=== PATIENT | male | born 1930 | race Caucasian/White ===

== ENCOUNTER 2016-09-01 11:05 | Inpatient (IN) | payer MEDICARE, BC ==
[2016-08-31 09:43] LABS: BASOPHILS 0.4 %; BASOPHILS ABSOLUTE 0.02 10/3/uL (0.0-0.16); EOSINOPHILS 2.1 %; HEMATOCRIT 40.9 % (40.0-51.0); HEMOGLOBIN 13.5 g/dL (13.6-17.8); LYMPHOCYTES 32.7 %; LYMPHOCYTES ABSOLUTE 1.58 10/3/uL (0.67-4.30); MEAN CORPUSCULAR VOLUME 90.9 fL (80-100); MEAN PLATELET VOLUME 11.6 fL (9.2-13.0); MONOCYTES 7.7 %; MONOCYTES ABSOLUTE 0.37 10/3/uL (0.21-1.20); NEUTROPHILS 57.1 %; NEUTROPHILS ABSOLUTE 2.76 10/3/uL (2.02-8.40); PLATELET COUNT 138 10/3/uL (150-400); RBC DISTRIBUTION WIDTH 13.8 % (12.0-16.0); WHITE BLOOD CELLS 4.8 10/3/uL (4.5-10.5)
[2016-08-31 09:44] LABS: MANUAL DIFF NO %
[2016-08-31 09:59] LABS: BUN (BLOOD UREA NITROGEN) 19 MG/DL (6-23); CALCIUM, SERUM 9.2 MG/DL (8.5-10.4); CHLORIDE, SERUM 101 MMOL/L (96-112); CO2 (CARBON DIOXIDE) 34 MMOL/L (24-34); GFR AFRICAN AMERICAN 49 ML/MIN (>=60); GFR NON AFRICAN AMERICAN 42 ML/MIN (>=60); POTASSIUM, SERUM 4.5 MMOL/L (3.5-5.3); SODIUM, SERUM 141 MMOL/L (135-148)
[2016-08-31 10:00] LABS: GLUCOSE, SERUM 229 MG/DL (60-99)
--- NOTE | ~2016-09-01 | CN ---
Consultation Report [facility] [address] [facility] [place]. [address] NAME: ARIADNE CAREY : 31 STATUS : ADM IN PAT#: [id number] AGE: 86 ADM/REG DATE : 09/01/16 MR#: [id number] REPORT SERV DATE: 09/02/16 DICTATED BY: DANICA BORREGO DATE: 09/01/16 REPORT STATUS : Draft TRANSCRIBED BY: MODL DATE: 09/01/16 CONSULTATION DATE OF CONSULTATION: 09/01/2016 REASON FOR CONSULTATION: Consulted for hypertension. IDENTIFYING DATA: PRIMARY CARE PHYSICIAN: Previously was Prakash Mota DO. The patient relates that they still go to [facility] and cannot remember the name of the new physician. ORTHOPEDIST: Miguel Schultz II, M.D. HISTORY OF PRESENT ILLNESS: This is an 86-year-old male with a history of diabetes type 2, hypertension, chronic lumbar pain, hypothyroidism, BPH, GERD who presents to Dr. Miguel Schultz II with admission for low back pain with spasms, with radiation to the right lower extremity and down at the lateral thigh and posterior calf and foot. He is presently status post L4-L5 and L5-S1 facetectomies with transforaminal lumbar fusion on 09/01/2016, the patient presented out of surgery with hypertension where his blood pressures were 227/79, 199/65, 221/88. The rapid response team did see him initially postoperatively. The hospitalist group has been consulted to manage his blood pressure. Next, the patient's history was obtained through interview with the patient coupled with review of [employer] and [employer]. PAST MEDICAL HISTORY: 1. Cataracts. 2. Diabetes, type 2. 3. GERD. 4. Hypertension. 5. Seasonal allergic conjunctivitis. 6. Arthritis. 7. Celiac disease with gluten problems for which he is on a gluten-free diet. 8. BPH. 9. Hypothyroidism. 10.Chronic lumbar pain. 11.TIA. 12.Diverticulosis. HOME MEDICATIONS: 1. Aspirin 81 mg p.o. daily. 2. Monopril 40 mg p.o. twice a day. 3. Hydrochlorothiazide 25 mg p.o. every morning. 4. Novolin 70/30, 20 units subcu with breakfast. Consultation Report [place] [id number] [facility] [place]. [address] NAME: ARIADNE CAREY : 31 STATUS : ADM IN PAT#: [id number] AGE: 86 ADM/REG DATE : 09/01/16 MR#: [id number] REPORT SERV DATE: 09/02/16 DICTATED BY: DANICA BORREGO DATE: 09/01/16 REPORT STATUS : Draft TRANSCRIBED BY: MESFIN DATE: 09/01/16 5. Novolin 70/30, 7 units subcu with supper. 6. Levothyroxine 137 mcg p.o. every morning. 7. Metformin 850 mg p.o. with breakfast and supper. 8. Lopressor 100 mg p.o. twice a day. ALLERGIES: NO KNOWN ALLERGIES. SOCIAL HISTORY: The patient is , 43 years. Has a total of 6 children between him and his . He is retired. He was previously in motor vehicle sales, lives in a single-level home. No history of tobacco, no illicit drug use, and no alcohol use. FAMILY HISTORY: Positive for diabetes and stroke. His father is in his 80s from a stroke. His mother is in her 90s from natural causes. The patient's paternal grandfather was positive for diabetes and hypertension. SURGICAL HISTORY: 1. Tonsillectomy in the 1970s. 2. L4-S1 lumbar laminectomy for nerve root decompression in 04/30/2015. 3. Bilateral IOLI. 4. Colonoscopy. REVIEW OF SYSTEMS: Are negative other than what is in HPI. The patient is alert and oriented. No shortness of breath. No confusion. No agitation. No fever. No chest pain. Does complain of nausea, but presently no vomiting. No abdominal pain at present time. PHYSICAL EXAMINATION: VITAL SIGNS: From today: Blood pressure prior to treatment, last blood pressure was 221/88; heart rate 62; O2 sat 98% on 2 L nasal cannula; respiratory rate 16. GENERAL: This is a very pleasant 86-year-old male, status post lumbar surgery. Resting in bed. Does complain of nausea. NEURO: His head is atraumatic, normocephalic. He is alert and oriented x3. His cranial nerves are intact. His mood is appropriate. NECK: Supple. Trachea is midline. No JVD noted. No obvious thyromegaly or lymphadenopathy. EENT: His sclerae are nonicteric. Pupils are equal and reactive to light. His nares are patent. Mucous membranes are moist. His tongue is midline without deviation. Soft palate rises equally on phonation. CHEST: No pain with palpation. LUNGS: Clear to auscultation bilaterally. He has normal respiratory effort. He has no increased work of breathing with conversation. CARDIOVASCULAR: S1, S2. No obvious murmurs, rubs, or gallops. He does have a regular rhythm, but he is on telemetry. Presently, he has a heart rate at 58 with a sinus bradycardia with a first degree AV block. ABDOMEN: Soft, nontender. He has hypoactive bowel sounds. No palpable organomegaly. Consultation Report [place] [id number] [facility] [place]. [address] NAME: ARIADNE CAREY : 31 STATUS : ADM IN [facility]#: [id number] AGE: 86 ADM/REG DATE : 09/01/16 MR#: [id number] REPORT SERV DATE: 09/02/16 DICTATED BY: DANICA BORREGO DATE: 09/01/16 REPORT STATUS : Draft TRANSCRIBED BY: MESFIN DATE: 09/01/16 EXTREMITIES: Normal distal pulses. No calf tenderness. No edema. He has bilateral SCDs and TEDs in place for DVT prophylaxis. SKIN: Warm and dry. No unusual rashes, skin lesions, normal color and turgor. PSYCH: The patient is pleasant, cooperative, appropriate mood and affect. SURGICAL WOUND SITE: Dressing is clean, dry, and intact. He does have a DEEPA drain compressed with sanguinous drainage noted at the bed side. Also a Sanchez catheter is in place, draining light yellow urine at the bedside. LABORATORY DATA: Sodium 141, potassium 4.5, chloride 101, BUN 19, creatinine 1.50, GFR 49. Glucose 229, calcium 9.2. White blood cell 4.8, hemoglobin 13.5, hematocrit 40.9, platelets 138. Present blood sugar is 219. The patient had an EKG today on 09/01/2016, which showed a sinus bradycardia with a first-degree heart block. Possible inferior anterior infarct age undetermined, rate of 58. ASSESSMENT AND PLAN: 1. Diabetes type 2. The patient states that he checks his blood sugars on the monitor twice a day at home. Average blood sugars noted were 150 to 250. Presently, his blood sugar is 219. He is normally on metformin and insulin of 70/30 at home. We will hold the metformin and his 70/30 insulin. Presently, he is having a lot of nausea. He can resume an 1800-ADA diet in the morning with gluten-free, which he request. community nutrition educator to see him regarding monitoring his blood sugars and his diet. We will place him on a sliding scale level 2 for tonight with a hypoglycemic protocol. Blood sugars before meal and at bedtime. We will check a blood sugar at 2 a.m. x1. 2. Hypertension. Aware. This gentleman came directly from surgery with systolic blood pressures in the 200s/70s to 90s. He is on numerous medications at home including hydrochlorothiazide, Monopril, aspirin as well as metoprolol. His creatinine noted though is presently 1.50. We will hold his hydrochlorothiazide. His aspirin is on hold postsurgery. We will hold his Monopril. His IV fluids will be continued at 75 an hour due to nausea. We will add hydralazine 10 to 20 mg IV q.4 hours p.r.n. systolic blood pressure greater than 165. We will continue his metoprolol 100 mg as ordered daily. He is on telemetry and we will monitor continuous O2 saturations since he is on a [employer] with Dilaudid for pain control. 3. Hypothyroidism. Aware. We will check a TSH and a free T4, and morning labs, and continue his levothyroxine. 4. GERD. Aware. The patient will be on Protonix p.o. daily for reflux. 5. A.m. labs: CMP, magnesium, CBC, phosphorus, TSH, free T4, hemoglobin A1c. The hospitalist group would like to thank you for this consultation. Please let us know if we can be of any further assistance. MICHAEL Danica Borrego, Consultation Report [address] [place]. [address] NAME: ARIADNE CAREY : 31 STATUS : ADM IN [facility]#: [id number] AGE: 86 ADM/REG DATE : 09/01/16 MR#: [id number] REPORT SERV DATE: 09/02/16 DICTATED BY: DANICA BORREGO DATE: 09/01/16 REPORT STATUS : Draft TRANSCRIBED BY: MESFIN DATE: 09/01/16 [employer] / [id number] CC: Miguel Schultz II, M.D.
--- NOTE | ~2016-09-01 | DS ---
Discharge Summary [facility] [address] [place]. [address] NAME: ARIADNE CAREY : 32 STATUS : DIS IN PAT#: [id number] AGE: 86 ADM/REG DATE : 09/01/16 MR#: [id number] REPORT SERV DATE: 09/16/16 DICTATED BY: THONY SCHULTZ II DATE: 09/15/16 REPORT STATUS : Draft TRANSCRIBED BY: MESFIN DATE: 09/15/16 Data Collection from hospitalization DISCHARGE DIAGNOSES: 1. Right lower extremity radiculopathy-recurrent. 2. L4-5, L5-S1 severe facet arthrosis with L4-5 spondylolisthesis. 3. Diabetes. 4. Hypertension. 5. Cataracts. 6. Gastroesophageal reflux disease. CONSULTATION: Danica Scruggs NP PROCEDURES PERFORMED: Revision laminectomy and facetectomy for decompression of the L4-L5 and S1 nerve roots; posterolateral arthrodesis, L4-5, L5-S1; posterior segmental instrumentation, L4-5, L5-S1; use of local autograft and allograft substitute and bone morphogenetic protein; use of microscope and stereotactic spinal imaging, 09/01/2016. PATHOLOGY: Spine, lumbar bone, and tissue-fibrocartilage consistent with intervertebral disk, benign bone fragments with degenerative changes, atrophic skeletal muscle. DISCHARGE MEDICATIONS: Aspirin 81 mg daily, belladonna and supplement one suppository per rectum twice a day as needed, Colace 100 mg twice a day, Cardura 1 mg daily, Monopril 40 mg twice a day, hydrochlorothiazide 25 mg every morning, Sledge 7.5/325 one to two tablets every six hours as needed, Novolin 70/30 20 units subcutaneously with breakfast and 7 units subcutaneously with supper, levothyroxine 137 mcg every morning, Lopressor 100 mg twice a day, MiraLAX powder one packet daily as needed. CONDITION AT DISCHARGE: Stable. DISPOSITION: The patient was discharged home to be followed by home health care on a gluten- free diet with activities as instructed. He would follow up with me, 10/07/2016. HOSPITAL COURSE: This is an 86-year-old man, who had been complaining of lumbar spine- related symptoms. The symptoms are located in the lower back with minimal aches and occasional spasms with radiation into the right lower extremity, radiating down the lateral thigh and into the posterior calf into his foot. The patient has L4-5, L5-S1 severe facet arthrosis with L4-5 spondylolisthesis. Treatment options were discussed and it was elected to proceed with surgical intervention. He was admitted to the hospital at this time for further evaluation and treatment. Upon admission, he was taken to the operating room, where he underwent the above-mentioned procedure. He tolerated this well and there were no complications. Postoperatively, he was seen by Danica Scruggs regarding hypertension. Postoperatively, he was hypertensive. Rapid response team did see him initially postoperatively. The patient states he checks his blood sugars on the monitor twice a day. Metformin was going to be held as well as his 70/30 insulin. He presently had a lot of nausea. He was going to resume an 1800-calorie diabetic diet, gluten free. He would undergo diabetes education. He was placed on sliding scale Discharge Summary [address] [address] NAME: ARIADNE CAREY : 31 STATUS : DIS IN PAT#: [id number] AGE: 86 ADM/REG DATE : 09/01/16 MR#: [id number] REPORT SERV DATE: 09/16/16 DICTATED BY: THONY SCHULTZ II DATE: 09/15/16 REPORT STATUS : Draft TRANSCRIBED BY: MESFIN DATE: 09/15/16 level 2 insulin. IV fluids were continued. Hydrochlorothiazide was held. Aspirin was on hold as well as Monopril. Metoprolol was continued. IV hydralazine would be given as needed. Protonix was continued for reflux. We were going to check TSH and free T4. Levothyroxine was continued. On postop day #1, creatinine level was 1.50. Level 2 sliding scale insulin continued as well as Lopressor. His blood pressure was controlled. He underwent diabetes education. On the , he denied any lower extremity radiculopathy. He had developed some bladder pain and pain with urination overnight. The drain was going to remain in place. Diabetes education continued. Hydrochlorothiazide was added. Levemir was added. He continued to progress. He was wanting to go home. Discharge planning was performed. On 09/05/2016, he said he was feeling better. His abdominal pain had resolved. Discharge instructions were given. Due to his improved and stable condition, he was discharged home with the above-stated instructions. Information collected by: Neela Barajas I submit the above information as my discharge summary. SIDNEY/MESFIN Thony Schultz II, M.D. / [id number] CC: Neha Esteban II [place]
--- NOTE | ~2016-09-01 | OP ---
Record Of Operation [facility] [address] [place]. [address] NAME: ARIADNE CAREY : 32 STATUS : DIS IN PAT#: [id number] AGE: 86 ADM/REG DATE : 09/01/16 MR#: [id number] REPORT SERV DATE: 09/05/16 DICTATED BY: THONY SCHULTZ II DATE: 09/05/16 REPORT STATUS : Draft TRANSCRIBED BY: MODL DATE: 09/05/16 DATE OF PROCEDURE: 09/01/2016 PREOPERATIVE DIAGNOSES: 1. Right lower extremity radiculopathy, recurrent. 2. L4-5, L5-S1 severe facet arthrosis with L4-5 spondylolisthesis. POSTOPERATIVE DIAGNOSES: 1. Right lower extremity radiculopathy, recurrent. 2. L4-5, L5-S1 severe facet arthrosis with L4-5 spondylolisthesis. PROCEDURE: 1. Revision laminectomy and facetectomy for decompression of the L4-L5 and S1 nerve roots. 2. Posterolateral arthrodesis, L4-5, L5-S1. 3. Posterior segmental instrumentation, L4-5, L5-S1. 4. Use of local autograft and allograft substitute, and bone morphogenic protein. 5. Use of the microscope and stereotactic spinal imaging. SURGEON: Thony Schultz M.D. FLUIDS: 1300 mL LR. ESTIMATED BLOOD LOSS: 75 mL. DRAINS: One drain. COMPLICATIONS: None. ANTIBIOTIC: Preoperatively. PREOPERATIVE HISTORY: This is a very friendly, 86-year-old gentleman, who is extremely active, who reports radiating pain from his right buttock into the posterior thigh and anterior and lateral aspects of his leg. He did well following a minimally invasive surgery at approximately two years ago. He reports that the pain is significant and does not allow him to be as active as he wants. He still participates in athletic programs. DESCRIPTION OF PROCEDURE: After informed consent was obtained, the patient was brought to the operating room at his request and general anesthesia achieved. He was placed in the prone position, and the back was prepped and draped in a sterile fashion. The stereotactic spinal pin was placed into the left iliac crest followed by completion of the intraoperative CT scan. The minimally invasive incision was now performed. A minimally invasive retractor was placed at L4-5 and L5-S1. The microscope was brought into place. Under microscopic visualization, the revision facetectomy and laminectomy was initiated at L4-5. Severe facet arthropathy was now identified and the remainder of the facetectomy carried out. The pars was now removed at L4. This allowed decompression of the L4 nerve root, which exhibited moderate compression upon it from the facet and residual hypertrophic ligamentum flavum. Record Of Operation [facility] [address] [address] NAME: ARIADNE CAREY : 31 STATUS : DIS IN PAT#: [id number] AGE: 86 ADM/REG DATE : 09/01/16 MR#: [id number] REPORT SERV DATE: 09/05/16 DICTATED BY: THONY SCHULTZ II DATE: 09/05/16 REPORT STATUS : Draft TRANSCRIBED BY: MESFIN DATE: 09/05/16 Next, the L5 nerve root was then also well decompressed by removal of additional facet. We essentially had to skeletonize the L5 pedicle on the right to adequately decompress and confirm adequate decompression of the L5 nerve root. Next, we worked down to the L5-S1 level whereupon again the pars was now removed. Severe compression of the L5 nerve root was noted in the foraminal zone. The aggressive facetectomy was required to adequately decompress the nerve roots in the foraminal zone. Next, the S1 nerve root was also decompressed. It was not as severely compressed at L5 but still exhibited significant compression, both nerve roots were now well decompressed and confirmed under the microscope. Next, the pedicle screws were applied. Percutaneous screws were placed on the left. On the right, screws were placed with the exception of the L5 screws, again we essentially had to skeletonize the pedicle in an effort to decompress the L5 nerve root. Repeat CT scan confirmed acceptable placement of the implants and the rods were then well assembled and final tightening performed. Next, the decortication was performed of the transverse process on the right at L4-L5 and the sacral ala. Local autograft was also placed along the decorticated surfaces along with allograft substitute and bone morphogenic protein. At this point, the deep drain was placed and standard closure performed, and the patient was extubated and transferred to PACU in stable condition. MAGO/MESFIN Thony Schultz II, M.D. / [id number] CC: Thony Schultz II, M.D.
[~2016-09-01 11:05] MED LIST: ACID; ADVIL PO; ASAB PO; FLOMAX4 PO; GINKGO BILO2 PO; GLUCPH8 PO; HYDROCHLOROT25 MG PO; IMOD PO; INSNOV7030 SC; LEVOTHYROXIN137 MCG PO; LOP100 PO; MELATONIN5 M1 PO; MONO20 PO; MONOPRIL40 MG PO; MULTIPLE VIT PO; PAIN RELIEF; PRILOSEC40 MG PO; SYN112 PO; VIAGRA100 MG PO; VITAMIN B-121000 MC1 SL; VITAMIN D1000 UNI1
[2016-09-02 09:20] LABS: HEMOGLOBIN 12.1 g/dL (13.6-17.8); MEAN CORPUS HGB CONC 33.2 g/dL (32.0-36.0); MEAN CORPUSCULAR HEMOGLOB 30.4 pg (26.0-34.0); MEAN CORPUSCULAR VOLUME 91.7 fL (80-100); PLATELET COUNT 154 10/3/uL (150-400); RBC DISTRIBUTION WIDTH 14.1 % (12.0-16.0); RED CELL COUNT 3.98 10/6/uL (4.7-6.1)
[2016-09-02 09:24] LABS: HEMATOCRIT 36.5 % (40.0-51.0); MANUAL DIFF YES %; WHITE BLOOD CELLS 8.7 10/3/uL (4.5-10.5)
[2016-09-02 09:43] LABS: LYMPHOCYTES 12 %; LYMPHOCYTES ABSOLUTE (CALC) 1.04 10/3/uL (0.67-4.30); MONOCYTES 7 %; MONOCYTES ABSOLUTE (CALC) 0.61 10/3/uL (0.21-1.20); NEUTROPHILS ABSOLUTE (CALC) 7.05 10/3/uL (2.02-8.40); PLATELET ESTIMATE ADQ (ADEQUATE); RBC MORPHOLOGY NORM (NORMAL); SEGMENTED NEUTROPHIL (0) 81 %; TOTAL NUCLEATED CELLS 100
[2016-09-02 09:44] LABS: A/G RATIO 0.9 (0.7-1.9); ALKALINE PHOSPHATASE 58 U/L (45-117); CALCIUM, SERUM 8.3 MG/DL (8.5-10.4); CHLORIDE, SERUM 103 MMOL/L (96-112); CREATININE 1.65 MG/DL (0.70-1.30); FREE T4 1.47 NG/DL (0.76-1.46); GFR AFRICAN AMERICAN 43 ML/MIN (>=60); GFR NON AFRICAN AMERICAN 37 ML/MIN (>=60); GLOBULIN 3.4 G/DL (2.5-4.1); GLUCOSE, SERUM 223 MG/DL (60-99); PHOSPHORUS, SERUM 3.9 MG/DL (2.5-4.5); SGPT(ALT) 30 U/L (5-65); SODIUM, SERUM 138 MMOL/L (135-148); TOTAL BILIRUBIN 0.4 MG/DL (0-1.2); TOTAL PROTEIN 6.4 G/DL (6.0-8.5)
[2016-09-02 09:46] LABS: BUN (BLOOD UREA NITROGEN) 26 MG/DL (6-23); CO2 (CARBON DIOXIDE) 24 MMOL/L (24-34); POTASSIUM, SERUM 5.1 MMOL/L (3.5-5.3)
[2016-09-02 09:47] LABS: SGOT(AST) 50 U/L (5-40)
[2016-09-03 04:51] LABS: BASOPHILS 0.1 %; BASOPHILS ABSOLUTE 0.01 10/3/uL (0.0-0.16); EOSINOPHILS 0.7 %; EOSINOPHILS ABSOLUTE 0.06 10/3/uL (0.0-0.53); HEMATOCRIT 34.4 % (40.0-51.0); HEMOGLOBIN 11.7 g/dL (13.6-17.8); IMMATURE GRANULOCYTES 0.1 %; IMMATURE GRANULOCYTES ABSOLUTE 0.01 10/3/uL (0.0-0.11); LYMPHOCYTES 13.9 %; LYMPHOCYTES ABSOLUTE 1.17 10/3/uL (0.67-4.30); MEAN CORPUSCULAR HEMOGLOB 30.7 pg (26.0-34.0); MEAN CORPUSCULAR VOLUME 90.3 fL (80-100); MEAN PLATELET VOLUME 11.6 fL (9.2-13.0); MONOCYTES 7.4 %; MONOCYTES ABSOLUTE 0.62 10/3/uL (0.21-1.20); NEUTROPHILS 77.8 %; NEUTROPHILS ABSOLUTE 6.52 10/3/uL (2.02-8.40); PLATELET COUNT 145 10/3/uL (150-400); RBC DISTRIBUTION WIDTH 13.9 % (12.0-16.0); RED CELL COUNT 3.81 10/6/uL (4.7-6.1); WHITE BLOOD CELLS 8.4 10/3/uL (4.5-10.5)
[2016-09-03 05:03] LABS: MANUAL DIFF NO %
[2016-09-03 05:04] LABS: BUN (BLOOD UREA NITROGEN) 26 MG/DL (6-23); CALCIUM, SERUM 8.4 MG/DL (8.5-10.4); CHLORIDE, SERUM 104 MMOL/L (96-112); CO2 (CARBON DIOXIDE) 25 MMOL/L (24-34); CREATININE 1.55 MG/DL (0.70-1.30); GFR AFRICAN AMERICAN 47 ML/MIN (>=60); GFR NON AFRICAN AMERICAN 40 ML/MIN (>=60); GLUCOSE, SERUM 254 MG/DL (60-99); POTASSIUM, SERUM 4.7 MMOL/L (3.5-5.3); SODIUM, SERUM 139 MMOL/L (135-148)
[2016-09-03 05:10] LABS: PHOSPHORUS, SERUM 1.9 MG/DL (2.5-4.5)
[2016-09-03 07:51] LABS: ASCORBIC ACID (UR NOT ORDER) NEG (NEG); BILIRUBIN, URINE NEGATIVE (NEG); KETONE, URINE TRACE MG/DL (NEG); LEUKOCYTE ESTERASE(NOT OR TRACE (NEG); WBC (NOT ORDERED) (RFLEX) 4 (0-5)
[2016-09-04 06:55] LABS: BASOPHILS 0.1 %; BASOPHILS ABSOLUTE 0.01 10/3/uL (0.0-0.16); EOSINOPHILS 1.5 %; EOSINOPHILS ABSOLUTE 0.13 10/3/uL (0.0-0.53); HEMATOCRIT 31.4 % (40.0-51.0); HEMOGLOBIN 10.5 g/dL (13.6-17.8); IMMATURE GRANULOCYTES 0.1 %; IMMATURE GRANULOCYTES ABSOLUTE 0.01 10/3/uL (0.0-0.11); LYMPHOCYTES 19.7 %; LYMPHOCYTES ABSOLUTE 1.66 10/3/uL (0.67-4.30); MEAN CORPUS HGB CONC 33.4 g/dL (32.0-36.0); MEAN CORPUSCULAR HEMOGLOB 30.1 pg (26.0-34.0); MEAN PLATELET VOLUME 11.4 fL (9.2-13.0); MONOCYTES 9.7 %; MONOCYTES ABSOLUTE 0.82 10/3/uL (0.21-1.20); NEUTROPHILS 68.9 %; NEUTROPHILS ABSOLUTE 5.81 10/3/uL (2.02-8.40); PLATELET COUNT 140 10/3/uL (150-400); RBC DISTRIBUTION WIDTH 14.1 % (12.0-16.0); RED CELL COUNT 3.49 10/6/uL (4.7-6.1); WHITE BLOOD CELLS 8.4 10/3/uL (4.5-10.5)
[2016-09-04 07:04] LABS: MANUAL DIFF NO %
[2016-09-04 07:05] LABS: BUN (BLOOD UREA NITROGEN) 26 MG/DL (6-23); CALCIUM, SERUM 8.6 MG/DL (8.5-10.4); CHLORIDE, SERUM 106 MMOL/L (96-112); CREATININE 1.23 MG/DL (0.70-1.30); GFR AFRICAN AMERICAN 62 ML/MIN (>=60); GFR NON AFRICAN AMERICAN 53 ML/MIN (>=60); POTASSIUM, SERUM 4.7 MMOL/L (3.5-5.3); SODIUM, SERUM 142 MMOL/L (135-148)
[2016-09-04 07:06] LABS: CO2 (CARBON DIOXIDE) 31 MMOL/L (24-34); GLUCOSE, SERUM 113 MG/DL (60-99); PHOSPHORUS, SERUM 1.1 MG/DL (2.5-4.5)
[2016-09-05] MEDS ORDERED: CARDURA1 MG PO (11:03)
[2016-09-05] MEDS ORDERED: [UNRECOGNIZED DRUG - OTHER] PR (11:08)
[2016-09-05] MEDS ORDERED: BELLADONNA PR (11:08)
[2016-09-05] MEDS ORDERED: NORCO1 TA2 PO (11:12)
[2016-09-05] MEDS ORDERED: DSS PO (12:17)
[2016-09-05] MEDS ORDERED: MIRALAX POWDER1 PKT PO (12:25)
[2016-10-04] MEDS ORDERED: ULTRAM50 PO (17:25)
[2016-10-04] MEDS ORDERED: MOBIC7.5 PO (17:26)
[2016-10-04] MEDS ORDERED: [UNRECOGNIZED DRUG - OTHER] (17:29)
[2016-10-04] MEDS ORDERED: VITAMINS (17:29)
[2016-11-22] MEDS ORDERED: GLUCPH8 PO (13:23)
[2016-12-10] MEDS ORDERED: GLUCPH8 PO (22:26)
[2016-12-10] MEDS ORDERED: ASAB PO (22:29)
[2016-12-10] MEDS ORDERED: GINKGO BILO2 PO (22:29)
[2016-12-10] MEDS ORDERED: GINSENG PO (22:30)
[2016-12-10] MEDS ORDERED: JOINT PO (22:31)
[2016-12-10] MEDS ORDERED: POTASSIUM OTC 99MG PO (22:31)
[2016-12-10] MEDS ORDERED: [UNRECOGNIZED DRUG - OTHER] PO (22:31)
[2016-12-10] MEDS ORDERED: PROBIOTIC PO (22:32)
[2016-12-10] MEDS ORDERED: MONOPRIL40 MG PO (22:33)
[2016-12-10] MEDS ORDERED: PRILO PO (22:33)
[2016-12-10] MEDS ORDERED: HCTZ25B PO (22:34)
[2016-12-10] MEDS ORDERED: CARDU2 PO (22:34)
[2016-12-10] MEDS ORDERED: MAGNESIUM OX PO (22:35)
[2016-12-10] MEDS ORDERED: FERROUS SULF325 M1 PO (22:35)
[2016-12-10] MEDS ORDERED: SYNTHROID137 MCG PO (22:37)
[2016-12-10] MEDS ORDERED: LOP100 PO (22:37)
[2016-12-10] MEDS ORDERED: INSNOV7030 SC ×2 (22:38)
[2016-12-10] MEDS ORDERED: ADVIL PM1 CAP PO (22:39)
[2016-12-10] MEDS ORDERED: MULTIVIT/MIN PO (22:39)
[2016-12-10] MEDS ORDERED: MELATONIN5 M1 PO (22:40)
[2016-12-10] MEDS ORDERED: VITAMIN D31000 UNIT PO (22:41)
[2016-12-10] MEDS ORDERED: ADVIL PO (22:41)
[2016-12-10] MEDS ORDERED: IMOD PO (22:42)
[2016-12-10] MEDS ORDERED: ZOFRAN ODT4 MG PO (22:42)
[2016-12-10] MEDS ORDERED: VITAMIN B-122500 MCG SL (22:42)
[2016-12-10] MEDS ORDERED: ULTRAM50 PO (22:43)
== END 2016-09-05 15:28 | disposition home or self-care (01) | DRG 460 ==
LOC: SDC/OF 11:05 → 3SO 19:14 → 1SO 21:32
PROVIDERS: Nurse Practitioner Acute Care; Nurse Practitioner Family; Orthopaedic Surgery
PROC: 0SG0071 Fusion of Lumbar Vertebral Joint with Autologous Tissue Substitute, Posterior Approach, Posterior Column, Open Approach (ICD-10-PCS; principal; 2016-09-01 12:00)
PROC: 0SG3071 Fusion of Lumbosacral Joint with Autologous Tissue Substitute, Posterior Approach, Posterior Column, Open Approach (ICD-10-PCS; 2016-09-01 12:00)
PROC: 4A11X4G Monitoring of Peripheral Nervous Electrical Activity, Intraoperative, External Approach (ICD-10-PCS; 2016-09-01 12:00)
DX: M51.16 Intervertebral disc disorders with radiculopathy, lumbar region (principal); E11.9 Type 2 diabetes mellitus without complications; I10 Essential (primary) hypertension; I97.3 Postprocedural hypertension; K21.9 Gastro-esophageal reflux disease without esophagitis; E03.9 Hypothyroidism, unspecified; N40.0 Benign prostatic hyperplasia without lower urinary tract symptoms; M54.5 Low back pain; G89.29 Other chronic pain; Z79.82 Long term (current) use of aspirin; Z79.4 Long term (current) use of insulin; Z79.84 Long term (current) use of oral hypoglycemic drugs; Z79.899 Other long term (current) drug therapy; Z86.73 Personal history of transient ischemic attack (TIA), and cerebral infarction without residual deficits; K90.0 Celiac disease
CPT/HCPCS: 80048; 80053; 81001; 82962; 83036; 83735; 84100; 84439; 84443; 85025; 87641; 88304; 88311; 93005; 97116-GP; 97161-GP; A9270-GY; C1713; C1729; C1769; J0360; J0690; J0780; J1170; J2405; J2710; J3010

== ENCOUNTER 2016-10-05 05:57 | Day surgery (SDC) | payer MEDICARE, BC ==
--- NOTE | ~2016-10-05 | OP ---
Record Of Operation [facility] [address] [place]. [address] NAME: ARIADNE CAREY : 32 STATUS : REG [facility]#: [id number] AGE: 86 ADM/REG DATE : 10/05/16 MR#: [id number] REPORT SERV DATE: 10/06/16 DICTATED BY: THONY TRIPP II DATE: 10/06/16 REPORT STATUS : Draft TRANSCRIBED BY: MESFIN DATE: 10/06/16 DATE OF PROCEDURE: 10/05/2016 PREOPERATIVE DIAGNOSES: 1. Lumbar seroma. 2. Radiculopathy. POSTOPERATIVE DIAGNOSES: 1. Lumbar seroma. 2. Radiculopathy. PROCEDURE: 1. Percutaneous needle aspiration of L5-S1 seroma. 2. Use of fluoroscopy. ANESTHESIA: Thony Tripp M.D. DETAILS OF PROCEDURE: The patient was brought to the procedure room and conscious sedation performed. He was placed in a prone position. The back was prepped and draped in a sterile fashion. The fluoroscopy was brought into place and the skin anesthetized and on the right side, a needle placed under fluoroscopy to the L5-S1 region. We were able to at this point aspirate 15 mL of serosanguineous fluid. The patient tolerated the procedure well and was transferred back to his preprocedure room in stable condition. MAGO/MESFIN Thony Tripp II, M.D. / [id number] CC: Thony Tripp II, M.D.
[~2016-10-05 05:57] MED LIST changes: +BELLADONNA PR; +CARDURA1 MG PO; +DSS PO; +MIRALAX POWDER1 PKT PO; +MOBIC7.5 PO; +NORCO1 TA2 PO; +ULTRAM50 PO; +VITAMINS; +[UNRECOGNIZED DRUG - OTHER]; +[UNRECOGNIZED DRUG - OTHER] PR
[2016-11-22] MEDS ORDERED: GLUCPH8 PO (13:23)
[2016-12-10] MEDS ORDERED: GLUCPH8 PO (22:26)
[2016-12-10] MEDS ORDERED: GINKGO BILO2 PO (22:29)
[2016-12-10] MEDS ORDERED: ASAB PO (22:29)
[2016-12-10] MEDS ORDERED: GINSENG PO (22:30)
[2016-12-10] MEDS ORDERED: JOINT PO (22:31)
[2016-12-10] MEDS ORDERED: [UNRECOGNIZED DRUG - OTHER] PO (22:31)
[2016-12-10] MEDS ORDERED: POTASSIUM OTC 99MG PO (22:31)
[2016-12-10] MEDS ORDERED: PROBIOTIC PO (22:32)
[2016-12-10] MEDS ORDERED: MONOPRIL40 MG PO (22:33)
[2016-12-10] MEDS ORDERED: PRILO PO (22:33)
[2016-12-10] MEDS ORDERED: CARDU2 PO (22:34)
[2016-12-10] MEDS ORDERED: HCTZ25B PO (22:34)
[2016-12-10] MEDS ORDERED: MAGNESIUM OX PO (22:35)
[2016-12-10] MEDS ORDERED: FERROUS SULF325 M1 PO (22:35)
[2016-12-10] MEDS ORDERED: SYNTHROID137 MCG PO (22:37)
[2016-12-10] MEDS ORDERED: LOP100 PO (22:37)
[2016-12-10] MEDS ORDERED: INSNOV7030 SC ×2 (22:38)
[2016-12-10] MEDS ORDERED: MULTIVIT/MIN PO (22:39)
[2016-12-10] MEDS ORDERED: ADVIL PM1 CAP PO (22:39)
[2016-12-10] MEDS ORDERED: MELATONIN5 M1 PO (22:40)
[2016-12-10] MEDS ORDERED: VITAMIN D31000 UNIT PO (22:41)
[2016-12-10] MEDS ORDERED: ADVIL PO (22:41)
[2016-12-10] MEDS ORDERED: IMOD PO (22:42)
[2016-12-10] MEDS ORDERED: VITAMIN B-122500 MCG SL (22:42)
[2016-12-10] MEDS ORDERED: ZOFRAN ODT4 MG PO (22:42)
[2016-12-10] MEDS ORDERED: ULTRAM50 PO (22:43)
== END 2016-10-05 23:59 | disposition home or self-care (01) ==
LOC: SDC 05:57
PROVIDERS: Orthopaedic Surgery
PROC: BR19YZZ Fluoroscopy of Lumbar Spine using Other Contrast (ICD-10-PCS; 2016-10-05)
PROC: 0H96XZZ Drainage of Back Skin, External Approach (ICD-10-PCS; principal; 2016-10-05 07:45)
DX: M96.842 Postprocedural seroma of a musculoskeletal structure following a musculoskeletal system procedure (principal); M54.17 Radiculopathy, lumbosacral region; E11.9 Type 2 diabetes mellitus without complications; K21.9 Gastro-esophageal reflux disease without esophagitis; Z79.82 Long term (current) use of aspirin; Z79.4 Long term (current) use of insulin; Z79.899 Other long term (current) drug therapy; Z90.89 Acquired absence of other organs; Z98.41 Cataract extraction status, right eye; Z98.42 Cataract extraction status, left eye; Z98.890 Other specified postprocedural states; Z98.1 Arthrodesis status
CPT/HCPCS: 82962; J1040; J2250; J3010; Q9967